=== PATIENT | male | born 1960 | race Caucasian/White ===

== ENCOUNTER 2019-10-14 15:50 | Emergency (ER) | payer OTHER ==
[~2019-10-14] VITALS: Ht 185.4 cm; Wt 83.0 kg
[2019-10-14 16:00] VITALS: BP 143/101
--- NOTE | 2019-10-14 16:07 | NUR ---
TRIAGE COMPLETE. RETURNED TO [facility] AWAITNG BED IN ED.
--- NOTE | 2019-10-14 16:32 | NUR ---
PT AMBULATED TO ER BED 09
[2019-10-14] MEDS ORDERED: NACL 0.9% 1,000 ML IV ONE (16:35)
[2019-10-14] MEDS ORDERED: ONDANSETRON 4 MG/2 ML VIAL IVP ONE (16:35)
[2019-10-14] MEDS ORDERED: ALBUTEROL SULFATE/IPRATROPIU 3 ML SOL IH ONE (16:35)
[2019-10-14] MEDS ORDERED: hydrALAZINE 20 MG/ML VIAL IVP ONE (16:55)
[2019-10-14 17:05] LABS: BASOPHILS % (AUTO) 0.5 % (0.0-2.0); EOSINOPHILS # (AUTO) 0.1 K/uL (0-0.4); EOSINOPHILS % (AUTO) 1.1 % (0.0-4.0); HEMOGLOBIN 14.1 g/dL (12.0-18.0); LYMPHOCYTES # (AUTO) 1.8 K/uL (2.0-11.5); LYMPHOCYTES % (AUTO) 32.1 % (20.5-51.1); MEAN CORPUSCULAR HEMOGLOBIN 30 pg (27-31); MEAN CORPUSCULAR HGB CONC 33 g/dL (33-37); MEAN CORPUSCULAR VOLUME 91.8 fL (80-94); MONOCYTES # (AUTO) 0.4 K/uL (0.8-1.0); MONOCYTES % (AUTO) 7.5 % (1.7-9.3); NEUTROPHILS # (AUTO) 3.4 K/uL (1.8-7.7); NEUTROPHILS % (AUTO) 58.8 % (42.2-75.2); PLATELET COUNT (AUTO) 297 K/uL (140-450); RED BLOOD CELL COUNT(AUTO) 4.69 MIL/uL (4.20-6.10); RED CELL DISTRIBUTION WIDTH 13.1 % (11.6-13.7); WHITE BLOOD COUNT (AUTO) 5.8 K/uL (4.8-10.8)
[2019-10-14 17:19] LABS: ANION GAP 13.1 (8-16); CARBON DIOXIDE 26.7 mmol/L (21-32); POTASSIUM 3.8 mmol/L (3.5-5.1)
[2019-10-14 17:34] LABS: ALBUMIN 4.1 g/dL (3.4-5.0); FREE T4 (FREE THYROXINE) 1.01 ng/dL (0.76-1.46); THYROID STIMULATING HORMONE 3.22 uIU/mL (0.34-3.74); TOTAL BILIRUBIN 0.2 mg/dL (0.0-1.0)
--- NOTE | 2019-10-14 17:34 | NUR ---
BIB SELF C/O DIZZINESS/ WEAKNESS/ NAUSEA/ CHILLS SINCE FRIDAY DENIES D/V, BOWEL SOUNDS NORMOACTIVE, ABD FIRM/ NON TENDER. DENIES SOB, CP. CAP REFILL <3. AAOX4. NO COMPLAINTS OF PAIN AT THIS TIME. ROM IN TACT. NO PMH, NKA
[2019-10-14 18:21] LABS: APPEARANCE,URINE CLEAR (CLEAR); BILIRUBIN,URINE NEGATIVE (NEGATIVE); BLOOD, URINE NEGATIVE (NEGATIVE); COLOR,URINE YELLOW (YELLOW); LEUKOCYTE ESTERASE ,URINE NEGATIVE (NEGATIVE); NITRITE, URINE NEGATIVE (NEGATIVE); PH,URINE 5.5 (5.0-9.0); UGLUCOSE NEGATIVE (NEGATIVE)
--- NOTE | 2019-10-14 18:25 | NUR ---
IV removed, catheter intact and site benign. Applied folded 4x4 gauze and tape to stop bleeding.
[2019-10-14 18:27] VITALS: BP 146/81
--- NOTE | 2019-10-14 18:28 | NUR ---
Patient discharged with v/s stable. Written and verbal after care instructions given and explained. Patient verbalized understanding. Ambulatory with steady gait. All questions addressed prior to discharge. Advised to follow up with PMD.
[2019-10-14 18:35] LABS: BARBITURATE, URINE NEG. ng/ml (NEG <=200); BENZODIAZEPINE, URINE NEG. ng/mL (NEG <=200); CANNABINOID, URINE NEG. ng/mL (NEG <=50); COCAINE, URINE NEG. ng/mL (NEG <=300); OPIATE, URINE NEG. ng/mL (NEG <=2000); PHENCYCLIDINE SCREEN,URINE NEG. ng/mL (NEG <=25)
--- NOTE | 2019-10-15 12:56 | NUR ---
Late entry. Confirmed with RN that 0.9 NS IV completed at 1800
== END 2019-10-14 18:28 | disposition home or self-care (01) ==
LOC: MED 15:50
DX: R42 Dizziness and giddiness (principal); R19.7 Diarrhea, unspecified; I10 Essential (primary) hypertension; E86.0 Dehydration; R06.2 Wheezing
CPT/HCPCS: 36415; 71045; 80053; 80305; 81003; 84439; 84443; 84484; 85025; 87804; 93005; 94640; 96361; 96374; 99284; J2405; J7030; J7620